=== PATIENT | female | born 1970 | race Caucasian/White ===

== ENCOUNTER 2021-05-02 19:57 | Emergency (ER) | payer OTHER ==
[~2021-05-02] VITALS: Ht 162.6 cm; Wt 68.0 kg
[2021-05-02] MEDS ORDERED: PROAIR HFA8.5 GM (20:11)
[2021-05-02 20:46] LABS: ABSOLUTE NEUTROPHILS 5.2 thou/uL (1.4-8.2); BASOPHILS 0.2 % (0.0-2.0); EOSINOPHILS 4.7 % (0.0-3.0); HEMATOCRIT 35.1 % (37.0-47.0); HEMOGLOBIN 12.2 gm/dL (12.0-15.0); MCH 31.8 pg (26.0-34.0); MCHC 34.7 g/dL (28.0-37.0); MCV 91.5 fL (80.0-100.0); MONOCYTES 7.6 % (1.0-8.0); PLATELET COUNT 286 thou/uL (150-400); POLYS 61.5 % (36.0-66.0); RBC 3.84 mil/uL (4.20-5.00); RDW 13.2 % (10.5-14.5); WBC 8.5 thou/uL (4.0-11.0)
[2021-05-02 20:59] LABS: ALBUMIN 3.5 g/dL (3.4-5.0); CALCIUM 8.6 mg/dL (8.5-10.1); CREATININE 0.7 mg/dL (0.6-1.0); TOTAL BILIRUBIN 0.3 mg/dL (0.2-1.0); TOTAL PROTEIN 6.7 g/dL (6.4-8.2)
[2021-05-02 21:08] LABS: POTASSIUM 2.8 mmol/L (3.5-5.1)
[2021-05-03] MEDS ORDERED: PREDNISONE 20 M20 M1 PO ×2 (02:07→04:54)
[2021-05-03] MEDS ORDERED: PROAIR HFA8.5 GM INH (04:54)
[2021-05-03 09:03] VITALS: BP 125/75
== END 2021-05-03 06:30 | disposition home or self-care (01) ==
LOC: ER 19:57
PROVIDERS: Physician Assistant
DX: J44.1 Chronic obstructive pulmonary disease with (acute) exacerbation (principal); Z20.822 Contact with and (suspected) exposure to COVID-19; E87.6 Hypokalemia; E83.42 Hypomagnesemia; Z79.899 Other long term (current) drug therapy